=== PATIENT | male | born 2000 | race Caucasian/White ===

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

== ENCOUNTER 2018-01-03 11:55 | Inpatient (IN) | payer MEDICAID ==
[~2018-01-03] VITALS: Ht 175.3 cm; Wt 61.2 kg
--- NOTE | ~2018-01-03 | OP ---
PATIENT NAME: MATILDE JENKINS MEDICAL RECORD: [id number] :98 LOCATION:[facility] ADMISSION DATE:01/03/18 SURGEON: STEFANO FERRELL MD DATE OF OPERATION: 01/04/2018 PREOPERATIVE DIAGNOSIS: Infection of the right lateral malleolus area. POSTOPERATIVE DIAGNOSIS: Suture abscess subcutaneous infection. PROCEDURES: 1. Excisional debridement to include skin, subcutaneous tissue, portions of fat and fascia. 2. Removal of foreign body. SURGEON: Stefano Ferrell MD ANESTHESIA: General. INTRAOPERATIVE COMPLICATIONS: None. SUMMARY OF PATHOLOGIC FINDINGS: Immediately upon incising the tissue, the patient clearly had an infected deep suture anchor that was removed relatively easily and the wound was amenable to closure. Cultures were taken. OPERATIVE SUMMARY IN DETAIL: After obtaining the appropriate preoperative orthopedic surgery consent as well as anesthetic consultation, evaluation and clearance, the patient was brought to the operating room and placed on the operating table in supine position. After general laryngeal mask airway was administered, the patient's right lower extremity was prepped and draped in routine sterile fashion. A very small curvilinear incision was made in and about the area of concern. Pus was immediately notified. It did appear; however, only to be superficial. The suture anchor knot was identified and removed with little degree of difficulty. Curettage was then utilized to continue the excisional debridement, 20 cm or less. Having completed this, the small incision was closed with 4-0 Prolene in routine interrupted fashion. Sterile dressings were applied. The patient was awakened and taken to recovery room in stable condition. All final needle and sponge counts were correct. TRANSINT:[id number] Voice Confirmation ID: [id number] DOCUMENT ID: [id number] STEFANO FERRELL MD at 1419 CC: [id number] DICTATION DATE: 01/06/18 1247 [facility]: 01/06/18 1306 [facility] 01/05/18 [place] [id number] [place] [address]
[~2018-01-03 11:55] MED LIST changes: -BACTRIM 400-801 TAB PO; -NORCO 10-325 TA1 TAB PO
[2018-01-03 12:24] LABS: BASOPHILS 0.2 % (0-2); EOSINOPHILS 2.1 % (0-7); HEMATOCRIT 44.4 % (42.0-54.0); IMMATURE GRANULOCYTES 0.1 % (0-5); LYMPHOCYTES 21.2 % (15-50); MCH 32.8 pg (26.0-34.0); MEAN PLATELET VOLUME 10.1 fL (7.4-10.4); MONOCYTES 3.5 % (2-11); NEUTROPHILS 72.9 % (40-80); PLATELET COUNT 202 10x3/uL (130-400); RBC 4.88 10x6/uL (4.20-6.10); RDW 12.7 % (11.5-14.5)
[2018-01-03 12:44] LABS: CALC OSMOLALITY 286 mosm/kg (275-300); CALCIUM 8.6 mg/dL (8.5-10.1); CARBON DIOXIDE 29.7 mmol/L (21.0-32.0); CHLORIDE - SERUM 105 mmol/L (98-107); CREATININE - SERUM 1.1 mg/dL (0.6-1.3); GLUCOSE 110 mg/dL (74-106); POTASSIUM - SERUM 3.4 mmol/L (3.5-5.1); SODIUM 144 mmol/L (136-145); UREA NITROGEN 10 mg/dL (7-18); eGFR NON AFRICAN AMERICAN > 90 mL/min (90-120)
[2018-01-03 12:56] VITALS: BP 128/61; BMI 19.9
[2018-01-03 13:01] LABS: C-REACTIVE PROTEIN < 0.2 mg/dL (0.0-0.9)
[2018-01-03 13:25] LABS: ERYTHROCYTE SEDIMENTATION RATE 1 mm/hr (0-15)
[2018-01-03 16:28] VITALS: BP 117/43
[2018-01-03 20:00] VITALS: BP 114/75
[2018-01-04] VITALS (10 sets, daily range): BP systolic 89–119; BP diastolic 44–64; Ht 175.3 cm; Wt 61.2 kg
[2018-01-04 05:57] LABS: HEMATOCRIT 43.5 % (42.0-54.0); HEMOGLOBIN 15.7 g/dL (13.5-17.5); MCH 33.1 pg (26.0-34.0); MCHC 36.1 g/dL (31.0-37.0); MCV 91.8 fL (80.0-100.0); MEAN PLATELET VOLUME 10.6 fL (7.4-10.4); RBC 4.74 10x6/uL (4.20-6.10); RDW 12.8 % (11.5-14.5); WBC 9.9 10x3/uL (4.8-10.8)
[2018-01-05] VITALS: BP 108/56
[2018-01-05 05:17] LABS: HEMATOCRIT 41.4 % (42.0-54.0); MCH 32.8 pg (26.0-34.0); MCHC 36.2 g/dL (31.0-37.0); MCV 90.6 fL (80.0-100.0); MEAN PLATELET VOLUME 10.5 fL (7.4-10.4); RBC 4.57 10x6/uL (4.20-6.10); RDW 12.2 % (11.5-14.5); WBC 11.4 10x3/uL (4.8-10.8)
[2018-01-05 08:28] VITALS: BP 115/58
[2018-01-05] MEDS ORDERED: BACTRIM 400-801 TAB PO (09:21)
[2018-01-05] MEDS ORDERED: NORCO 10-325 TA1 TAB PO (09:22)
[2018-01-05 11:31] VITALS: BP 123/59
== END 2018-01-05 14:40 | disposition home or self-care (01) | DRG 857 ==
LOC: D.MS 11:55
PROVIDERS: Orthopaedic Surgery
PROC: 0JBN0ZZ Excision of Right Lower Leg Subcutaneous Tissue and Fascia, Open Approach (ICD-10-PCS; principal; 2018-01-04 12:45)
PROC: 8E0YXY8 Suture Removal from Lower Extremity (ICD-10-PCS; 2018-01-04 12:45)
DX: T81.4XXA Infection following a procedure, initial encounter (principal); L02.415 Cutaneous abscess of right lower limb; M79.5 Residual foreign body in soft tissue